=== PATIENT | male | born 1950 | race Caucasian/White ===

== ENCOUNTER 2017-02-25 11:00 | Inpatient (IN) | payer MEDICARE, MEDICAID ==
[~2017-02-25 11:00] MED LIST: ACETAMINOPHEN650 MG RC; ACTIVASE50 MG IV; ACYCLOVIR200 MG; ADRENALIN OTHER; ADULT ASPIRIN81 MG; ADULT ASPIRIN81 MG PEG; ADULT MUCU100 MG/5 M GT; ADVIL LIQUI-GE200 M2 JT; ALBUTEROL0.83 MG/ML INH; ALLEGRA180 MG GT; ALLERGY10 MG PEG; AMIKACIN SULFATE; ANTI-TUSS100 MG/5 M; ASPIR 8181 MG; ASPIR-LOW81 MG GT; ASPIRIN81 MG; ATROPINE CARE2 ML OP; ATROPINE SULFAT15 M1 SL; ATROPINE SULFATE SL; AZACTAM; BACITRACIN1 G1 EXT; BISACODYL10 M1 RC; CALMOSEPTINE O3.5 G1 TP; CALMOSEPTINE TP; CATHFLO ACTIVASE2 MG IV; CEFTIN500 M1 PEG; CLARITIN10 M2 GT; CLARITIN10 MG; COLACE150 MG/15; COLACE150 MG/15 GT; CONSTULOSE10 G/15 ML PEG; CONSTULOSE10 GM/15 M PEG; CULTURELLE1 CA1 GT; DIOCTO; DOCUSATE PEG; DULCOLAX10 MG/SUPP RC; DUONEB AERO NEB; EFFER-K 10 MEQ10 ME1 PEG; ENULOSE10 G/15 ML; ENULOSE10 G/15 ML GT; ENULOSE10 GM/151 PO; EXPECTORAN100 MG/52 PEG; FAMOTIDINE20 MG; FAST RELIEF LAX10 MG RC; FIRST AID ANTIB30 GM; FLEET ENEMA118 ML RC; FLOMAX0.4 MG GT; FLOMAX0.4 MG PEG; FLORAJEN PEG; FLORAJEN3 CAPS460 MG PEG; GLYCOLAX527 GM; HUMALOG100 UNITS/ SC; HUMULIN N100 U/ML SQ; IBUPROFEN200 M3 PO; IBUPROFEN400 MG GT; IPRAT-ALBUT 0.5-3 ML AERO NEB; IPRAT-ALBUT 0.5-3 ML IH; IPRAT-ALBUT 0.5-3 ML INH; JEVITY; JEVITY 1.2 CA1500 ML PEG; KEFLEX; LACRI-LUBE EACH EYE; LANTUS100 U/ML; LEVAQUIN500 M1 GT; LEVAQUIN750 M1 PEG; LEVOFLOXACIN500 M1 PEG; LIDOCAINE VISCO15 ML OTHER; LISINOPRIL10 MG; LISINOPRIL5 MG; MELOXICAM PEG; MERREM1 GM IV; METHYLPHENIDATE5 MG; MILK OF MA400 MG/5 M; MILK OF MA400 MG/5 M GT; MILK OF MA400 MG/5 M PEG; MINERAL OIL EN133 ML RC; MOTRIN400 MG; MOTRIN400 MG PEG; MUCOMYST; MUCOMYST 20% INH4 ML AERO NEB; NORCO 5-325 TA1 EACH PEG; NORCO 5/325 TAB1 TAB PO; NORCO 5/3251 TAB PEG; NORVASC5 M1 PEG; NORVASC5 MG PO; NOVOLIN N100 U/ML SQ; NOVOLIN R100 UNIT/1 SC; NOVOLOG FL100 UNIT/2 SC; NOVOLOG100 U/M SQ; NYSTOP60 GM TOP; OMEPR PEG; OMEPRAZOLE-BIC1 EAC1 PEG; ONDANSETRON HCL4 M2 PEG; OSMOLITE CAL; PERCOCET 5/3251 TAB; PRILOSEC20 MG; PRILOSEC40 MG; PRINIVIL5 MG; PROSTAT; PROSTAT GT; PROSTAT PEG; PULMICORT0.5 MG/2 M IH; RANITIDINE HCL150 MG; REFRESH DRY EYE15 ML OP; REFRESH P M O OP; REFRESH P.M. O3.5 G2 OP; REGLAN1 MG/ML GT; REGLAN5 MG; REGLAN5 MG PEG; RITALIN5 M1 PEG; RITALIN5 MG; RITALIN5 MG GT; RITALIN5 MG PEG; SENOKOT8.6 M1 PEG; SENOKOT8.8 MG/5 M; SENOKOT8.8 MG/5 M GT; SENOKOT8.8 MG/5 M PO; SODIUM BICARBO650 MG; SODIUM CHLORIDE10 M2 IV; SODIUM CHLORIDE20 M3 IV; SYMMETREL50 MG/5 ML; TAMIFLU75 MG/CAP PEG; TERAZOSIN HCL5 MG PEG; TRIPLE ANTIBIOT30 GM TP; TUSSI GT; TYLENOL LI650 MG/20 GT; TYLENOL SU650 MG/SUP PR; TYLENOL160 MG/51 GT; TYLENOL325 M2 PEG; TYLENOL650 MG; UNICOMPLEX-M1 TAB PEG; UNICOMPLEX-M1 TAB PO; VITAMIN C; VITAMIN C500 MG; VITAMIN C500 MG/5 M; WATER; XYLOCAINE 1% OTHER; ZANTAC15; ZANTAC150 MG; ZEGERID GT; ZOLOFT100 MG; ZOSYN IV; [UNRECOGNIZED DRUG - CODE] JT; [UNRECOGNIZED DRUG - OTHER]; [UNRECOGNIZED DRUG - OTHER]; [UNRECOGNIZED DRUG - OTHER]; [UNRECOGNIZED DRUG - OTHER]; [UNRECOGNIZED DRUG - OTHER]; [UNRECOGNIZED DRUG - OTHER] RC; prostat
[2017-02-25] MEDS ORDERED: HYDROCODON-ACE1 EA16 ENDO (11:09)
[2017-02-25] MEDS ORDERED: ASPIRIN81 M1 GT (11:10)
[2017-02-25] MEDS ORDERED: ACETAMINOPHEN650 MG PR (11:10)
[2017-02-25] MEDS ORDERED: PULMICORT0.5 MG/22 INH (11:11)
[2017-02-25] MEDS ORDERED: BISCOLAX10 MG PR ×2 (11:11→11:18)
[2017-02-25] MEDS ORDERED: ENEMEEZ283 MG/5 M PR (11:11)
[2017-02-25] MEDS ORDERED: IPRAT-ALBUT 0.5-3 ML INH ×2 (11:12→11:19)
[2017-02-25] MEDS ORDERED: HYDROCHLOROTH12.5 M2 ENDO (11:12)
[2017-02-25] MEDS ORDERED: ENULOSE10 GM/151 GT (11:13)
[2017-02-25] MEDS ORDERED: CLARITIN10 M6 GT ×2 (11:13→11:14)
[2017-02-25] MEDS ORDERED: PROBIOTIC1 EAC6 ENDO (11:13)
[2017-02-25] MEDS ORDERED: METHYLPHENIDATE5 M2 GT (11:14)
[2017-02-25] MEDS ORDERED: [UNRECOGNIZED DRUG - OTHER] GT (11:15)
[2017-02-25] MEDS ORDERED: MILK OF MAGNESIA GT (11:15)
[2017-02-25] MEDS ORDERED: SINGULAIR10 M1 ENDO (11:15)
[2017-02-25] MEDS ORDERED: OMEPRAZOLE GT (11:16)
[2017-02-25] MEDS ORDERED: ONDANSETRON ODT4 M1 GT (11:16)
[2017-02-25] MEDS ORDERED: PRO STAT AWC GT (11:17)
[2017-02-25] MEDS ORDERED: REFRESH LACRI-3.5 GM OP ×2 (11:17→12:03)
[2017-02-25] MEDS ORDERED: TERAZOSIN HCL5 MG GT (11:18)
[2017-02-25] MEDS ORDERED: ADULT TUSS100 MG/51 GT (11:19)
[2017-02-25] MEDS ORDERED: POTASSIUM20 MEQ/13 GT (11:20)
[2017-02-25] MEDS ORDERED: IBUPROFEN100 MG/51 GT (11:21)
[2017-02-25] MEDS ORDERED: LINZESS145 MC1 GT (11:22)
[2017-02-25] MEDS ORDERED: IBUPROFEN100 MG/51 PO (11:22)
[2017-02-25] MEDS ORDERED: ISOPTO ATROPINE5 ML SL (11:23)
[2017-02-25] MEDS ORDERED: NOVOLIN N100 UNIT/2 SC (11:23)
[2017-02-25] MEDS ORDERED: NYSTOP60 GM EXT (11:24)
[2017-02-25] MEDS ORDERED: NOVOLOG FL100 UNIT/2 SC (11:26)
[2017-02-25 11:46] LABS: BASO % 0.1 % (0-2); EOS % 0.6 % (0-7); EOSINOPHIL ABSOLUTE COUNT 0.1 tho/cmm (0.0-0.7); HCT-HEMATOCRIT 41.7 % (36.0-53.5); HGB-HEMOGLOBIN 14.3 gm/dl (13.5-17.0); IMMATURE GRANULOCYTES ABSOLUTE 0.01 tho/cmm (0-0.03); IMMATURE GRANULOCYTES PERCENT 0.1 % (0-0.3); LYMPH % 8.4 % (20-45); LYMPH ABSOLUTE COUNT 0.8 tho/cmm (0.8-4.5); MCH (MEAN CORPUSCULAR HGB) 31.8 pg (28.0-32.0); MCHC MEAN CORPUSCULAR HGB CONC 34.3 % (32.0-36.0); MCV (MEAN CELL VOLUME) 92.9 fl (82.0-96.0); MEAN PLATELET VOLUME 11.3 cmc (9.4-12.4); MONO % 3.4 % (0-12); MONOCYTE ABSOLUTE COUNT 0.3 tho/cmm (0.0-1.2); NEUTROPHIL ABSOLUTE COUNT 8.1 tho/cmm (1.6-8.0); NEUTROPHIL-AUTOMATED 8.1 tho/cmm (1.6-8.0); NEUTROPHILS % 87.4 % (40-80); PLATELET COUNT 159 tho/cmm (150-450); RED BLOOD COUNT 4.49 mil/cmm (4.40-5.70); RED CELL DISTRIBUTION WIDTH 12.4 % (12.4-16.4); WHITE BLOOD COUNT 9.3 tho/cmm (4.0-10.0)
[2017-02-25 12:47] LABS: ANION GAP 9 mmol/L (0-20); BLOOD UREA NITROGEN 15 mg/dl (6-24); CALCIUM 8.7 mg/dl (8.5-10.5); CARBON DIOXIDE-VENOUS 35 mmol/L (22-32); CHLORIDE 99 mmol/l (96-110); CREATININE 0.99 mg/dl (0.60-1.30); GLUCOSE 93 mg/dL (70-110); POTASSIUM 3.8 mmol/L (3.7-5.1); SODIUM 139 mmol/L (135-145); eGFR VALUE FOR BLACK >90 mL/Min
[2017-02-25 13:02] LABS: URINE BILIRUBIN NEGATIVE (NEG); URINE BLOOD NEGATIVE (NEG); URINE GLUCOSE (UA) NEGATIVE (NEG); URINE KETONE NEGATIVE (NEG); URINE LEUKOCYTE ESTERASE NEGATIVE (NEG); URINE NITRITE NEGATIVE (NEG); URINE PROTEIN NEGATIVE (NEG)
[2017-02-25 13:04] LABS: URINE APPEARANCE CLEAR; URINE COLOR YELLOW
[2017-02-25 13:56] LABS: PROCALCITONIN <0.05 ng/ml (0.05-0.09)
[2017-02-25 20:03] LABS: ABG CO2 ARTERIAL 32 mmol/L (21-27); ARTERIAL BLD GAS O2 SATURATION 91 % (95-98); ARTERIAL BLOOD GAS PCO2 49 mmHg (32-45); ARTERIAL PO2 59 mmHg (70-100); BICARBONATE 31 mmol/L (21-28); BLOOD GAS BASE EXCESS 6 mM/L (-/+3); PH 7.41 Units (7.35-7.45)
[2017-02-25 20:31] LABS: INR 1.2 INR (0.9-1.1); PROTHROMBIN TIME 13.5 SECONDS (9.0-13.6)
[2017-02-25 20:42] LABS: ALB/GLOB RATIO 0.7 (0.8-2.0); ALBUMIN 2.9 g/dl (3.5-5.0); ALKALINE PHOSPHATASE 83 U/L (33-138); ALT/SGPT 37 U/L (12-78); ANION GAP 8 mmol/L (0-20); AST/SGOT 33 U/L (10-40); BILIRUBIN,TOTAL 0.7 mg/dl (0.0-1.5); BLOOD UREA NITROGEN 13 mg/dl (6-24); CARBON DIOXIDE-VENOUS 32 mmol/L (22-32); CHLORIDE 102 mmol/l (96-110); CREATININE 0.94 mg/dl (0.60-1.30); GLUCOSE 78 mg/dL (70-110); POTASSIUM 3.7 mmol/L (3.7-5.1); SODIUM 138 mmol/L (135-145); eGFR VALUE FOR BLACK >90 mL/Min
[2017-02-26 04:58] LABS: BASO % 0.2 % (0-2); EOS % 1.4 % (0-7); EOSINOPHIL ABSOLUTE COUNT 0.1 tho/cmm (0.0-0.7); HCT-HEMATOCRIT 36.2 % (36.0-53.5); HGB-HEMOGLOBIN 12.1 gm/dl (13.5-17.0); IMMATURE GRANULOCYTES ABSOLUTE 0.02 tho/cmm (0-0.03); IMMATURE GRANULOCYTES PERCENT 0.3 % (0-0.3); LYMPH % 13.9 % (20-45); LYMPH ABSOLUTE COUNT 0.8 tho/cmm (0.8-4.5); MCH (MEAN CORPUSCULAR HGB) 31.5 pg (28.0-32.0); MCHC MEAN CORPUSCULAR HGB CONC 33.4 % (32.0-36.0); MCV (MEAN CELL VOLUME) 94.3 fl (82.0-96.0); MEAN PLATELET VOLUME 11.4 cmc (9.4-12.4); MONO % 10.8 % (0-12); MONOCYTE ABSOLUTE COUNT 0.6 tho/cmm (0.0-1.2); NEUTROPHIL ABSOLUTE COUNT 4.3 tho/cmm (1.6-8.0); NEUTROPHIL-AUTOMATED 4.3 tho/cmm (1.6-8.0); NEUTROPHILS % 73.4 % (40-80); PLATELET COUNT 140 tho/cmm (150-450); RED BLOOD COUNT 3.84 mil/cmm (4.40-5.70); RED CELL DISTRIBUTION WIDTH 12.7 % (12.4-16.4); WHITE BLOOD COUNT 5.9 tho/cmm (4.0-10.0)
[2017-02-26 05:06] LABS: ANION GAP 6 mmol/L (0-20); BLOOD UREA NITROGEN 13 mg/dl (6-24); CALCIUM 7.6 mg/dl (8.5-10.5); CARBON DIOXIDE-VENOUS 31 mmol/L (22-32); CHLORIDE 104 mmol/l (96-110); CREATININE 0.91 mg/dl (0.60-1.30); POTASSIUM 3.3 mmol/L (3.7-5.1); SODIUM 138 mmol/L (135-145); eGFR VALUE FOR BLACK >90 mL/Min
[2017-02-26 05:07] LABS: GLUCOSE 127 mg/dL (70-110)
[2017-02-27 05:52] LABS: BASO % 0.2 % (0-2); EOS % 2.9 % (0-7); EOSINOPHIL ABSOLUTE COUNT 0.1 tho/cmm (0.0-0.7); HGB-HEMOGLOBIN 12.1 gm/dl (13.5-17.0); IMMATURE GRANULOCYTES ABSOLUTE 0.01 tho/cmm (0-0.03); IMMATURE GRANULOCYTES PERCENT 0.2 % (0-0.3); LYMPH % 22.2 % (20-45); MCH (MEAN CORPUSCULAR HGB) 31.6 pg (28.0-32.0); MCHC MEAN CORPUSCULAR HGB CONC 33.6 % (32.0-36.0); MEAN PLATELET VOLUME 11.9 cmc (9.4-12.4); MONO % 16.8 % (0-12); MONOCYTE ABSOLUTE COUNT 0.7 tho/cmm (0.0-1.2); NEUTROPHIL ABSOLUTE COUNT 2.5 tho/cmm (1.6-8.0); NEUTROPHIL-AUTOMATED 2.5 tho/cmm (1.6-8.0); NEUTROPHILS % 57.7 % (40-80); PLATELET COUNT 123 tho/cmm (150-450); RED BLOOD COUNT 3.83 mil/cmm (4.40-5.70); RED CELL DISTRIBUTION WIDTH 12.7 % (12.4-16.4); WHITE BLOOD COUNT 4.4 tho/cmm (4.0-10.0)
[2017-02-27 06:06] LABS: ALBUMIN 2.3 g/dl (3.5-5.0); ANION GAP 8 mmol/L (0-20); BLOOD UREA NITROGEN 9 mg/dl (6-24); C-REACTIVE PROTEIN 4.7 mg/dl (0-0.9); CALCIUM 7.6 mg/dl (8.5-10.5); CARBON DIOXIDE-VENOUS 30 mmol/L (22-32); CHLORIDE 108 mmol/l (96-110); CREATININE 0.79 mg/dl (0.60-1.30); GLUCOSE 137 mg/dL (70-110); PHOSPHOROUS 2.1 mg/dl (2.5-4.9); POTASSIUM 3.8 mmol/L (3.7-5.1); SODIUM 142 mmol/L (135-145); eGFR VALUE FOR BLACK >90 mL/Min
[2017-02-28 04:46] LABS: BASO % 0.3 % (0-2); EOS % 4.8 % (0-7); EOSINOPHIL ABSOLUTE COUNT 0.2 tho/cmm (0.0-0.7); IMMATURE GRANULOCYTES ABSOLUTE 0.01 tho/cmm (0-0.03); IMMATURE GRANULOCYTES PERCENT 0.3 % (0-0.3); LYMPH % 35.7 % (20-45); LYMPH ABSOLUTE COUNT 1.4 tho/cmm (0.8-4.5); MCHC MEAN CORPUSCULAR HGB CONC 34.2 % (32.0-36.0); MCV (MEAN CELL VOLUME) 93.6 fl (82.0-96.0); MEAN PLATELET VOLUME 11.8 cmc (9.4-12.4); MONOCYTE ABSOLUTE COUNT 0.5 tho/cmm (0.0-1.2); NEUTROPHIL ABSOLUTE COUNT 1.7 tho/cmm (1.6-8.0); NEUTROPHIL-AUTOMATED 1.7 tho/cmm (1.6-8.0); NEUTROPHILS % 45.9 % (40-80); PLATELET COUNT 145 tho/cmm (150-450); RED BLOOD COUNT 4.06 mil/cmm (4.40-5.70); RED CELL DISTRIBUTION WIDTH 12.6 % (12.4-16.4); WHITE BLOOD COUNT 3.8 tho/cmm (4.0-10.0)
[2017-02-28 05:00] LABS: ALBUMIN 2.5 g/dl (3.5-5.0); ANION GAP 7 mmol/L (0-20); BLOOD UREA NITROGEN 7 mg/dl (6-24); CALCIUM 7.9 mg/dl (8.5-10.5); CARBON DIOXIDE-VENOUS 31 mmol/L (22-32); CHLORIDE 107 mmol/l (96-110); GLUCOSE 125 mg/dL (70-110); PHOSPHOROUS 1.7 mg/dl (2.5-4.9); POTASSIUM 3.6 mmol/L (3.7-5.1); SODIUM 141 mmol/L (135-145); eGFR VALUE FOR BLACK >90 mL/Min
[2017-02-28] MEDS ORDERED: LEVAQUIN750 M1 IV (12:23)
== END 2017-02-28 13:20 | DRG 871 ==
LOC: EDMED 11:00 → EMR2 16:31 → PCUB 17:38
PROVIDERS: Emergency Medicine; Internal Medicine Infectious Disease; ADMIT Family Medicine
PROC: 02HV33Z Insertion of Infusion Device into Superior Vena Cava, Percutaneous Approach (ICD-10-PCS; principal; 2017-02-26)
PROC: B548ZZA Ultrasonography of Superior Vena Cava, Guidance (ICD-10-PCS; principal; 2017-02-26)
DX: A41.9 Sepsis, unspecified organism (principal); J18.9 Pneumonia, unspecified organism; J96.11 Chronic respiratory failure with hypoxia; Z93.0 Tracheostomy status; J44.9 Chronic obstructive pulmonary disease, unspecified; I69.354 Hemiplegia and hemiparesis following cerebral infarction affecting left non-dominant side; I10 Essential (primary) hypertension; E11.9 Type 2 diabetes mellitus without complications; Z93.1 Gastrostomy status; Z79.4 Long term (current) use of insulin; Z79.82 Long term (current) use of aspirin; Z79.891 Long term (current) use of opiate analgesic; Z79.51 Long term (current) use of inhaled steroids; Z88.1 Allergy status to other antibiotic agents; Z87.891 Personal history of nicotine dependence; Y95 Nosocomial condition; I69.320 Aphasia following cerebral infarction; Z90.49 Acquired absence of other specified parts of digestive tract; R53.81 Other malaise
CPT/HCPCS: C1751; J1650; J1956; J2543; J3370; J3480; J7030; J7050; J7999; P9612